=== PATIENT | male | born 1965 | race Caucasian/White ===

== ENCOUNTER 2025-07-26 16:52 | Inpatient (IN) | payer OTHER, SELFPAY ==
[2025-07-26] VITALS (9 sets, daily range): BP systolic 150–192; BP diastolic 97–118; BMI 25.5; BMI 25.7
--- NOTE | 2025-07-26 12:27 | ED.GENMED ---
History of Present Illness
General
Chief Complaint: Abdominal Symptoms
Time Seen by Provider: 07/26/25 12:12
History of Present Illness
History of Present Illness:
60-year-old male with no significant past medical history presents to the emergency department for evaluation of upper abdominal pain and bilious vomiting that began last night. No fevers or chills. Has had minimal stool and flatus output thus is
concern for bowel obstruction although his only prior abdominal surgery is bilateral inguinal hernia repair. Denies chest pain or shortness of breath. No hematochezia or hematemesis.
Review of Systems
Review of Systems
Allergies reviewed?: Yes
All Other Systems: ROS reviewed and negative except as documented in HPI and ROS
Phy Exam
Physical Exam
Physical Exam:
GEN: Well appearing, NAD, WDWN
HEENT: Oral mucosa moist, no scleral icterus
Cardiac: Regular rate and rhythm, no murmur
Lung: No respiratory distress, no tachypnea
Abdomen: Soft, focal epigastric tenderness, mild lower abdominal tenderness, no rigidity
MSK: No gross deformity or injuries
Skin: Good color, no pallor or jaundice, no rashes
Neuro: AO x3, moves all extremities freely
Psych: Calm, cooperative
Course
Orders/Labs/Results
Orders:
Orders
07/26/25 11:21
EKG [Electrocardiogram (*1)] Urgent
Reason for Study: Tachycardia
EKG- Treatment ONCE
07/26/25 12:27
CT Abd/Pel (IV only)-DH only Urgent
Comment:
Reason For Exam: abd pain/bloating/no flatus
0.9% Sodium Chloride 1000 ml [Nss] 1,000 ml IV BOLUS
07/26/25 12:43
Complete Blood Count/With Diff Urgent
Comprehensive Metabolic Panel Urgent
Lactic Acid Q4H
Comment: CANCEL 2nd LACTIC ACID IF 1st LACTIC ACID IS LESS THAN 2
Lipase Urgent
07/26/25 13:57
Ondansetron Injectable [Zofran] 4 mg .ROUTE .STK-MED ONE
07/26/25 13:58
Ondansetron Injectable [Zofran] 4 mg IV NOW STA
07/26/25 14:03
Acetaminophen 1000MG/100Ml [Ofirmev] 1,000 mg in 100 ml .ROUTE .STK-MED
07/26/25 14:05
Acetaminophen 1000MG/100Ml [Ofirmev] 1,000 mg IV NOW STA
07/26/25 Dinner
Clear Liquid
07/26/25 15:11
Lactated Ringers [Lr] 1,000 ml IV BOLUS
Piperacillin/Tazo 3.375 Gram [Zosyn] 3.375 gram in 50 ml IV NOW
07/26/25 15:13
HYDROmorphone [Dilaudid] 0.5 mg IV NOW STA
Abnormal Lab Results
07/26/25
12:43
WBC 13.9 H 10^3/uL
(4.8-10.8)
MCHC 32.6 L g/dL
(33.0-37.0)
RDW 14.6 H %
(11.5-14.5)
Absolute Neuts (auto) 12.5 H 10^3/uL
(1.4-6.5)
Absolute Lymphs (auto) 0.6 L 10^3/uL
(1.2-3.4)
Absolute Monos (auto) 0.8 H 10^3/uL
(0.1-0.6)
Neutrophils % 89.8 H %
(42.2-75.2)
Lymphocytes % 4.3 L %
(20.5-51.1)
Glucose 148 H mg/dl
(70-99)
07/26/25 12:43
07/26/25 12:43
Vital Signs
Initial and Last Documented VS:
Initial Vital Signs
Temp Pulse Resp BP Pulse Ox
98.8 F 123 16 192/118 99
07/26/25 11:17 07/26/25 11:17 07/26/25 11:17 07/26/25 11:17 07/26/25 11:17
Last Documented Vital Signs
Temp Pulse Resp BP Pulse Ox
98.8 F 123 16 176/102 96
07/26/25 11:17 07/26/25 11:17 07/26/25 11:17 07/26/25 14:02 07/26/25 15:00
MDM/Problems Addressed
MDM/Problems Addressed:
Workup reveals acute cholecystitis, reviewed with general surgery who will consult on the patient tomorrow, will be admitted for IV antibiotics and further management
*Pulse Oximetry
SaO2: 99
Oxygen Mode of Delivery: Room air
Patient hypoxic: no
*Critical Care Note
Total Time (30-74mins, 75-104mins- exclusive of procedures): Not Applicable
ED Attending Note
-
Portions of this chart may have been created with voice recognition software.� Occasional wrong word or��sound alike� substitutions may have occurred due to the inherent limitations of voice recognition software.
Discharge Plan
Departure
Patient Disposition: Admit
Date of Disposition: 07/26/25
Time of Disposition: 15:24
Admit to: Med/Surg
Presentation/result/management discussed w/ accepting MD/DO: Hospitalist
Discharge Problem:
Acute cholecystitis
Prescriptions:
No Action
No Current Medications
0
Referrals:
UNKNOWN - PT DOES,NOT KNOW [Family Provider]
Interventions
Interventions:
*Risk Screen - Suicide Last Done: 07/26/25 11:17
*General Assessment Last Done: 07/26/25 12:47
*Neglect/Abuse Screening Last Done: 07/26/25 11:17
*ED- Fall Risk Assessment Last Done: 07/26/25 12:47
*ED COVID-19 Vaccine History Last Done: 07/26/25 12:47
*ED Influenza Vaccine History Last Done: 07/26/25 12:47
CR-Pcskhh-[id number] Assessment Last Done: 07/26/25 12:48
Discharge Date and Time
Print Language: GABONESE
[2025-07-26] MEDS: NSS 1000 IV ×2 (12:44→20:10)
[2025-07-26 12:53] LABS: Hematocrit 47.2 % (39.0-52.0); Hemoglobin 15.4 g/dL (13.0-18.0); Mean Corp Hgb Conc. 32.6 g/dL (33.0-37.0); Mean Corpuscular Volume 83.7 fL (80.0-94.0); Nucleated Red Blood Cells % 0 % (-); Platelet Count 361 10^3/uL (130-400); Red Cell Dist. Width 14.6 % (11.5-14.5)
[2025-07-26 13:08] LABS: ALT (SGPT) 18 U/L (0-50); AST (SGOT) 21 U/L (17-59); Albumin 4.7 g/dl (3.5-5.0); Alkaline Phosphatase 78 U/L (38-126); Blood Urea Nitrogen 14 mg/dl (9-20); Calcium 9.3 mg/dl (8.4-10.2); Carbon Dioxide 30 mmol/L (22-30); Chloride 98 mmol/L (98-107); Estimated Creatinine Clearance 95 ml/min; Glucose 148 mg/dl (70-99); Lipase 87 U/L (23-300); Potassium 4.5 mmol/L (3.5-5.1); Sodium 135 mmol/L (135-145); Total Protein 8.1 g/dl (6.3-8.2); eGFR > 60.00
[2025-07-26] MEDS: ZOFRAN 4 MG IV ×2 (13:59→20:07)
[2025-07-26] MEDS: OFIRMEV 1000 MG IV (14:05)
[2025-07-26] MEDS: ZOSYN 50 IV ×2 (15:22→20:00)
[2025-07-26] MEDS: DILAUDID 0.5 MG IV ×3 (15:23→23:58)
--- NOTE | 2025-07-26 15:28 | HPS.HSE ---
Addendum entered and electronically signed by Cyndee Pang DO 07/26/25 17:48:
I have seen and examined the patient. I have discussed the patient at length with the resident and reviewed her history and physical, and agree with her history physical assessment and plan of care as per below.
The patient is a 60-year-old gentleman without significant past medical history presents to the emergency department secondary to diffuse midepigastric pain that radiates to the mid abdomen also associated with bilateral low back pain. He has been
chopping wood over the past week and says that he thought maybe the low back pain was related to that. He denies any fevers, no dysuria, no pain in the kidney area, no blood in the urine. Lipase is normal . CT findings c/w acute cholecystitis.
Additional findings are of a hypodense lesion on the left kidney, and urine analysis does not show an infection. Clinical correlation is not consistent with a pyelonephritis.
Vital signs BP 183/109 mmHg, HR 110
PE General No acute distress, conversant, well-developed well-nourished
Cardiovascular-regular rhythm, tachycardic, no murmurs
Lungs-clear to auscultation bilaterally no wheezes rales rhonchi
Abdomen-no peritoneal signs, no guarding, no rebound, diffuse epigastric tenderness noted
Extremities no clubbing cyanosis or edema-
I agree with the assessment and plan of care as per below, and with additional findings
#Gallstones, concern for acute cholecystitis, jake-cholecystic fluid on CT scan, leukocytosis
-Surgery has seen the patient, they are recommending n.p.o. past midnight and likely surgical intervention tomorrow
-IV Zosyn
# Hematuria, associated with the incidental findings including wedge-shaped hypodensity in the left kidney.
-The patient does not have clinical correlation to support acute pyelonephritis (has low back pain L5 region, possibly musculoskeletal vs visceral-somatic). No evidence for infection on urine analysis.
-Pt made aware of findings on CT and hematuria by myself, and discussed follow-up for these findings.
- Will get Urology consultation and MRI of the kidneys.
Original Note:
Family Physician
-
Family Physician: NOT KNOW UNKNOWN - PT DOES
Chief Complaint
-
Abdominal pain
History of Present Illness
60-year-old male with no significant past medical history presenting to the ER reporting upper abdominal pain, nausea/vomiting. Symptoms started yesterday evening around 4, patient vomited what ever he ate for lunch. Since then he has been having
bilious vomiting�5 episodes until now along with nausea. Patient reports his abdominal pain is diffuse in the epigastric and right upper quadrant regions. Does not vary with the position, food intake. Patient denies fever/chills, chest pain, SOB,
hematemesis, hematochezia. Reports minimal stool/flatus, he had a small bowel movement in the morning today. He also reports having lower back pain.
Patient did not take any medications for the pain, nausea/vomiting.
ED course� afebrile, blood pressure 192/118, pulse 123, MT 99. WBC 13.9, blood glucose 148, LFTs normal, T. bili normal, lactate 1.4, lipase 87
CT abdomen/pelvis�acute cholecystitis with pericholecystic fluid. Possible left pyelonephritis. EKG with sinus tachycardia.
Patient received IV fluids, ondansetron, acetaminophen, Dilaudid and he was given a dose of Zosyn.
Medical History
Past Medical History
Past Medical History: Reports None
Past Surgical History: Reports Other (Inguinal hernia repair)
Social History
Tobacco: Non-smoker
Alcohol: Occasional
Drug: None
Personal: Single
Living: Alone
Employment: Employed
Family History
Family History: Not pertinent
Allergies / Home Medications
Allergies reflects when Allergies were last updated in [facility].
Home Medications with original date entered in [facility]
Allergy/Medication List:
Allergies
Allergy/AdvReac Type Severity Reaction Status Date / Time
hydrocodone Allergy Itching Verified 07/26/25 11:17
oxycodone (Oxycodone) Allergy Itching Verified 07/26/25 11:17
environmental Allergy runny Uncoded 07/26/25 11:17
nose,
itchy eyes
Home Medications
No Meds [No Current Medications] 07/26/25
Review of Systems
-
A 12 point ROS was completed and negative except as noted: Yes
Physical Exam
Vital Signs
Vital Signs
Temp Pulse Resp BP Pulse Ox
98.8 F 123 16 176/102 96
07/26/25 11:17 07/26/25 11:17 07/26/25 11:17 07/26/25 14:02 07/26/25 15:00
Physical Exam
General: No Apparent Distress and Comfortable
HEENT: NormoCephalic and Atraumatic
Respiratory: Clear
Cardiac: S1/S2 and Regular Rhythm
GI: Soft, Non Tender, Non Distended, Normal Bowel Sounds and Other (Long sign negative)
Genito-urinary: Other (Patient has diffuse low back pain); No No costovertebral tender
Neuro: Awake, Alert, Oriented and AO x 3
Psych: Calm
Laboratory Results
-
07/26/25 12:43
07/26/25 12:43
Laboratory Results
Lactic Acid Cancelled 07/26/25 16:30
Total Bilirubin 0.7 mg/dl (0.2-1.3) 07/26/25 12:43
AST 21 U/L (17-59) 07/26/25 12:43
ALT 18 U/L (0-50) 07/26/25 12:43
Alkaline Phosphatase 78 U/L (38-126) 07/26/25 12:43
Lipase 87 U/L (23-300) 07/26/25 12:43
Impression/Plan
-
IMPRESSION:
60-year-old male with no significant past medical history presenting to the ER reporting upper abdominal pain, nausea/vomiting.
PLAN:
#Acute cholecystitis
Elevated white count 13.9, patient is afebrile
CT abdomen pelvis with evidence of acute cholecystitis, gallstone measuring 9 mm
Clears for now, n.p.o. past midnight
Start IV fluids
Patient received a dose of Zosyn, continue
Surgery consulted
Plan for cholecystectomy tomorrow
Adequate pain control
Antiemetics as needed, Zofran
Check EKG for QT
Continue Zosyn
#Elevated blood pressure
#Tachycardia
EKG with sinus tachycardia
Likely due to pain
Will monitor on telemetry
#Left pyelonephritis
Incidental finding on CT abdomen pelvis, radiology recommendation for nonemergent MRI
Patient does not have CVA angle tenderness, although complains of diffuse low back pain
No urinary symptoms
Will check urinalysis reflex to culture
DVT prophylaxis�SCDs
Diet�clear liquids, n.p.o. past midnight
Full code
[2025-07-26] MEDS: LR 1000 IV (16:00)
[2025-07-26 16:12] LABS: Urine Character Clear (Clear)
[2025-07-26 16:39] LABS: Urine Squamous Cell 0-2 /LPF (Few)
[2025-07-26 16:40] LABS: Urine White Cell 0-2 /HPF (0-5)
[2025-07-26] MEDS: APRESOLINE 5 MG IV (17:00)
[2025-07-26] MEDS: TRANDATE 10 MG IV (18:17)
--- NOTE | 2025-07-26 19:06 | PTCARENOTE ---
pt received to 2103 with cousin who is [employer] here, SS then walked to bed. TT with Hospitalist regarding Toradol prior to sx and verification. Bp 171/109 Labetalol ordered. MD will change to Dilaudid and IV APAP. NSS 80ml/hr. resting in bed ECG
tachycardic 130 T 100.7
[2025-07-26] MEDS: TUMS CHEWABLE TABLET 200 MG PO (21:04)
[2025-07-27] VITALS (23 sets, daily range): BP systolic 92–163; BP diastolic 61–104
[2025-07-27] MEDS: ZOSYN 50 IV ×4 (02:19→21:10)
[2025-07-27] MEDS: DILAUDID 0.5 MG IV ×2 (05:04→08:57)
[2025-07-27] MEDS: NSS 1000 IV ×2 (06:18→11:25)
[2025-07-27 07:05] LABS: Hematocrit 45.8 % (39.0-52.0); Hemoglobin 14.8 g/dL (13.0-18.0); Mean Corp Hgb Conc. 32.3 g/dL (33.0-37.0); Mean Corpuscular Volume 84.3 fL (80.0-94.0); Nucleated Red Blood Cells % 0 % (-); Platelet Count 364 10^3/uL (130-400); Red Cell Dist. Width 14.7 % (11.5-14.5)
[2025-07-27 07:21] LABS: ALT (SGPT) 16 U/L (0-50); AST (SGOT) 19 U/L (17-59); Albumin 4.1 g/dl (3.5-5.0); Alkaline Phosphatase 73 U/L (38-126); Blood Urea Nitrogen 13 mg/dl (9-20); Calcium 8.9 mg/dl (8.4-10.2); Carbon Dioxide 28 mmol/L (22-30); Chloride 97 mmol/L (98-107); Estimated Creatinine Clearance 95 ml/min; Glucose 128 mg/dl (70-99); Potassium 4.0 mmol/L (3.5-5.1); Sodium 133 mmol/L (135-145); Total Protein 7.4 g/dl (6.3-8.2); eGFR > 60.00
--- NOTE | 2025-07-27 09:51 | W.SUR.PREOP ---
Pre-Operative Surgical Note
-
I have examined this patient prior to the performance of the scheduled procedure.
The patient's condition is unchanged from the time of the current History and
Physical and the patient is able to undergo the scheduled procedure.
--- NOTE | 2025-07-27 09:52 | CON.GS ---
Addendum entered and electronically signed by Tha Fields MD 07/27/25 17:58:
Patient had anaphylactic reaction to MRI contrast. Properly sent to the ICU for further hemodynamic monitoring though he appears to be making fine recovery.
MRI did reconfirm acute cholecystitis. Patient added on for the OR schedule tomorrow.
Patient agreeable to plan of care, all questions answered.
General surgery will continue to follow.
Original Note:
Consultation
-
Date/Time Consultation Requested: 07/26/2025 6 PM
Date/Time Consultation Performed: 07/27/2025 8 a.m.
Requesting Provider: Hospitalist
Performing Provider: Dr. Fields
Reason for Consultation: Acute cholecystitis
Medical History
-
Chief Complaint: Right upper quadrant abdominal pain
History of Present Illness:
This is a 60-year-old male who presents with history of 2 days of epigastric abdominal pain with nausea and bilious vomiting. He does endorse slightly similar but lesser episodes in the past on recollection. He denies any fevers or chills at home
but has been febrile here. The patient denies Chest Pain, Shortness Of Breath, changes in urinary and bowel habits, unintentional weight loss, jaundice, icterus, acolic stools.
Past Medical History
Past Medical History: None
Past Surgical History: None
Social History
Tobacco: Non-Smoker
Alcohol: Occasional
Drug: None
Personal: Single
Living: Alone
Employment: Employed
Family History
Family History: Reviewed & Not Pertinent
Allergies / Home Medications
Allergy/AdvReac Type Severity Reaction Status Date / Time
hydrocodone Allergy Itching Verified 07/26/25 11:17
oxycodone (Oxycodone) Allergy Itching Verified 07/26/25 11:17
environmental Allergy runny Uncoded 07/26/25 11:17
nose,
itchy eyes
�Medication �Instructions �Recorded �Confirmed �Type
No Meds [No Current Medications] 11/09/25 11/09/25 History
Review of Systems
-
All other systems: Negative unless noted
A 10 point review of systems was completed, and was negative except as per HPI.
Physical Exam
Vital Signs
Temp Pulse Resp BP Pulse Ox
99.0 F 109 16 163/104 100
07/27/25 08:00 07/27/25 08:00 07/27/25 08:00 07/27/25 08:00 07/27/25 08:00
07/26/25 07/27/25 07/28/25
06:59 06:59 06:59
Actual Weight 76.521 kg
Body Mass Index (BMI) 25.7
Lab Results
07/27/25 06:28
07/27/25 06:28
WBC 16.1 10^3/uL (4.8-10.8) H 07/27/25 06:28
Hgb 14.8 g/dL (13.0-18.0) 07/27/25 06:28
Hct 45.8 % (39.0-52.0) 07/27/25 06:28
Plt Count 364 10^3/uL (130-400) 07/27/25 06:28
Abs Immat Gran (auto) 0.1 10^3/uL (0-0.05) H 07/27/25 06:28
Neutrophils % 83.7 % (42.2-75.2) H 07/27/25 06:28
Physical Exam
General: Well Developed
HEENT: Normocephalic
Respiratory: Non Labored Respirations
GI: Soft, Non Tender and Non Distended
Data Reviewed
-
CT Scan: Image Personally Visualized and interpreted, Report Reviewed by me, Discussed with Patient and Discussed with Family
Labs: Labs Reviewed by me, Discussed with Patient and Discussed with Family
Total Time Spent with Patient (in minutes): 35
Assessment / Plan
-
This is a 60-year-old male who presents with right upper quadrant/epigastric abdominal pain. CT imaging concerning for cholelithiasis as well as a thickened gallbladder wall. On exam he is not significantly tender but is febrile and tachycardic
with a +leukocytosis. LFTs and lipase okay.
Despite his lack of tenderness, I do have a high suspicion for acute cholecystitis.
Will plan for laparoscopic cholecystectomy with cholangiogram.
Risks/Benefits/Alternatives, expected postoperative course and possible complications (bleeding, infection, injury to surrounding structures, acute/chronic pain) discussed at length. Patient wishes to proceed with surgery. All questions answered.
Consent obtained.
I spent 76 minutes in total for the care of this patient today including direct patient care and counseling, reviewing labs, imaging, coordination of care, as well as documentation.
--- NOTE | 2025-07-27 10:35 | CM ---
CM following re: discharge planning.
Reviewed pt's chart, met with pt and pt's girlfriend at bedside.
Pt is a 60 year old male, admitted with primary dx of Acute Cholecystitis. OR today.
Pt reports he lives alone in a 2[address], has a cat, girlfriend in and out, no children. 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
PCP: [facility]
Pharmacy: [facility].
D/C plan: home with no needs. girlfriend to transport at discharge.
CM will follow with discharge plan updates as needed.
[2025-07-27] MEDS: DECADRON 10 MG IV (11:36)
[2025-07-27] MEDS: ADRENALIN 0.3 MG IM (11:36)
[2025-07-27 11:42] LABS: Glucose - Point of Care 150 mg/dl (70-99)
--- NOTE | 2025-07-27 11:46 | W.PN.UPDATE ---
Update Note
Progress Note Update
Rapid response was called for patient being noted to having likely an anaphylactic episode.
During MRI postcontrast patient was noted to having acute onset of dyspnea/tachycardia/hypotension and diaphoresis
Patient systolic blood pressure was in range of 70s.
Patient was given IV fluid boluses. Patient was given Benadryl/IM epinephrine and IV steroid
Patient transferred to ICU for closer monitoring for next 24 hours
Patient was examined in ICU
Patient vitally stable with systolic blood pressure in 110s, tachycardic with heart rate in 120s
No stridor audible on neck exam. No tongue swelling noted
Clear bilateral lung matthwe with bilateral air entry
Care plan discussed with Clubhouse Attendant
Patient family at bedside updated
--- NOTE | 2025-07-27 12:18 | PTCARENOTE ---
Patient sent down to MRI to follow up possible pyelonephritis seen on cat scan.I received call from cat scan saying that he had a reaction to the dye and would need Benadryl.Shortly after that I was told that he was transferred to ICU.The patient's
was told and escorted over to her husbands room .All of his belongings were also taken to the new room.
--- NOTE | 2025-07-27 12:31 | CON.INTV ---
Consultation
Consultation Request
Date/Time Consultation Requested: 07/27/2025 12:32
Date/Time Consultation Performed: 07/27/2025 12:32
Performing Provider: Zaid Uriarte MD
Medical History
-
History of Present Illness:
This is a 60 y/o male with no significant past medical history who presented to the ED on 07/26/2025 with upper abdominal pain radiating to the mid abdomen, nausea and bilious vomiting that began the day prior. He had 5 episodes of vomiting total.
In the ED BP was 183/109, HR 110. Labs revealed a CMP within normal limits except for glucose of 148, CBC with a WBC of 13.9, UA positive for RBCs and 2+ Ketones. CT scan abdomen/pelvis showed gallstone with pericholecystic fluid concerning for
acute cholecystitis, possible left pyelonephritis, moderate diverticulosis, mild diffuse bladder wall thickening. [facility] was consulted with plan for surgical intervention, he was started on Zosyn, and he was admitted to the hospital.
On 07/27, he had an MRI of the abdomen to follow up on his possible left pyelonephritis. This showed cholelithiasis and gallbladder wall thickening raising concern for acute cholecystis, no MRCP evidence for choledocholithiasis, and resolution of
kidney findings. By patient's report, shortly after finishing the MRI he began to experience numbness and tingling in his face with redness of his skin. His blood pressure abruptly decreased, so he was transferred to the ICU and given 0.3mg
epinephrine for presumed anaphylactic reaction to the Gadolinium-containing contrast. He does not that he was worried he may have developed a new allergy to shellfish recently, as ~2 weeks ago after eating a shellfish potpie his noted his face
had become bright red and puffy. These symptoms were self-limiting at that time, however. He has no other anaphylactic reactions he is aware of. He currently is free of numbness/tingling of his face, shortness of breath. He continues to experience
upper/right sided abdominal pain with nausea, but it is significantly improved since yesterday and the day prior. His back pain has completely resolved.
Past Medical History
Past Medical History: None
Past Surgical History: None
Social History
Tobacco: Non-smoker
Alcohol: Occasional
Drug: None
Personal: Single
Living: Alone
Employment: Employed
Family History
Family History: Reviewed & Not Pertinent
Allergies / Home Medications
Allergies
Allergy/AdvReac Type Severity Reaction Status Date / Time
Gadolinium-Containing Allergy Severe Anaphylaxis Verified 07/27/25 12:12
Contrast Medi
hydrocodone Allergy Itching Verified 07/26/25 11:17
oxycodone (Oxycodone) Allergy Itching Verified 07/26/25 11:17
environmental Allergy runny Uncoded 07/26/25 11:17
nose,
itchy eyes
Home Medications
�Medication �Instructions �Recorded �Confirmed �Last Taken �Type
No Meds [No Current Medications] 07/26/25 07/26/25 Unknown History
Review of Systems
-
History Source: Patient
Constitutional: No Symptoms
EENT: No Symptoms
Respiratory: No Symptoms
Cardiac: No Symptoms
Abdomen/GI: Abdominal Pain and Nausea
Skin: Itching (Now resolved) and Rash (Now resolved)
Neuro: Numbness (Now resolved)
Vitals / Labs / Diagnostic Testing
Vital Signs
Temp Pulse Resp BP Pulse Ox
97.8 F 109 16 163/104 100
07/27/25 11:40 07/27/25 08:00 07/27/25 08:00 07/27/25 08:00 07/27/25 11:40
Lab Data
07/27/25 06:28
07/27/25 06:28
Diagnostic Testing:
Physical Exam
-
HEENT: Normocephalic and Anicteric
Cardiovascular: S1/S2, Regular Rhythm and Other (Tachycardia)
Respiratory: Clear, Non-Labored Respirations and Other (Supplemental Oxygen)
GI: Soft, Non Distended, Non Tender and Normal Bowel Sounds
Neurology: Awake, Alert and Oriented
Skin: Warm, Dry and Good Color
General: Comfortable
Assessment
-
Assessment:
This is a 60 y/o male with no significant past medical history who presented to the ED on 07/26/2025 with upper abdominal pain radiating to the mid abdomen, nausea and bilious vomiting that began the day prior found to have acute cholecystis who
experienced an anaphylactic reaction after MRI today.
Plan:
Anaphylactic Reaction
Gadolinium-Contrast Allergy
Patient with numbness/tingling of the face and rash with acute episode of hypotension after Gadolinium-containing contrast administered
Possible historic allergy to shellfish in recent history
S/p 0.3mg epinephrine
Doing well, currently not on pressors, BP has since recovered. Goal to maintain MAP >65
No signs of current ongoing reaction
Continue to monitor in the ICU on telemetry
Would recommend epi pen prescription following eventual discharge from the hospital
Counselled patient on use of epi pen and that if he experiences symptoms of an allergic reaction, he should call 911 even if his symptoms resolve after epi pen use due to concern for rebound allergic reaction. Additionally counselled him on delayed
allergic reactions
Will monitor
Acute Cholecystitis
WBC elevated in the ED
CT scan abdomen/pelvis 07/26: Gallstone with pericholecystic fluid concerning for acute cholecystitis, possible left pyelonephritis, moderate diverticulosis, mild diffuse bladder wall thickening
MRI 07/27: Cholelithiasis and gallbladder wall thickening raising concern for acute cholecystis, no MRCP evidence for choledocholithiasis
General surgery is following, will appreciate their insight
Initial plan seemed to be for possible surgery today, but this seems to have been delayed due to anaphylactic reaction. Defer to general surgery for timeline for surgical interventions
Current diet set to full liquids, will plan to make him NPO at midnight
Continue PRN pain medications, antiemetics, Zosyn
Continue IV fluids
[2025-07-27] MEDS: DILAUDID 0.25 MG IV (12:54)
[2025-07-27] MEDS: ZOFRAN 4 MG IV (12:55)
--- NOTE | 2025-07-27 13:09 | PTCARENOTE ---
Received pt post [employer]ELOP[employer] for anaphylaxis reaction to contrast for his MRI. His face continues to be flushed with scattered blotchy flat reddened rash on his neck and torso. Diaphoresis resolving. He was given Decadron and Epinephrine upon arrival as
ordered by who is at the bedside. No wheezing or difficulty swallowing. +BSX4. Currently NPO. He is c/o neck pain/stiffness and tingling of his wrists and L/E's. He was informed of the plan of care to monitor him closely for the next 24
hours for any other S/S of anaphylaxis. He verbalized his understanding. Left FA#20g protective catheter with 0.9nss@ 100ml/hr. He was also informed that he absolutely allergic to IV contrast and shell fish and to make sure in the future he informs
his health care providers of that. He was also informed to make sure that he is discharged with an Epi pen should he have a reaction to shellfish or cross contamination in the future. He and his girlfriend verbalized their understanding.
--- NOTE | 2025-07-27 14:53 | W.PN.HOSP.TC ---
Today's Communication/Plan
-
see note
Assessment / Plan
Assessment / Plan
1. Acute cholecystitis
- patient presented for abd pain and billious vomiting
- CT abdomen pelvis in ER showing cholelithiasis with pericholecystic fluid concerning for acute cholecystitis
- Patient started on empiric Zosyn
- General Surgery involved in care and patient was planned to taken to the OR today , this has been postponed for tomorrow
2. Anaphylactic reaction
- Patient got anaphylactic reaction presumably from MRI contrast, medication list reviewed and no new medications given around that time
- Patient was hypotensive as part of the reaction, now improved
- Required to be given epinephrine 0.3 mg IM and IV Decadron 10 mg.
- No signs concerning of airway blockage, monitor.
- Maintain on IVF
3. Acute hyponatremia
- Mild, monitor
4. Sinus tachycardia
- post anaphylaxis, asymptomatic
- continue monitoring
Full code
Care plan discussed with service developer/family member at bedside
Total critical care time 39 mins . Total critical care time documented does not include time spent on separately billed procedures or the services of residents, students, nurses or physician assistants. I personally saw and examined the patient. I
have reviewed all diagnostic interpretations and treatment plans as written. I was present for the coates portions of any procedures performed and the inclusive time noted in any critical care statement. Critical care time includes patient management
by me, time spent at the patients bedside, time to review lab and imaging results, discussing patient care, documentation in the medical record, and time spent with the family or caregiver.
Anticipated Discharge: 24 - 48 hours
Subjective/Interval History
-
Date of Service: July 27, 2025
Denies dyspnea/chest discomfort
Tachycardic, no palpitation reported
No abdominal pain/nausea/vomiting
Objective Data
-
Labs:
Laboratory Results
07/27/25
06:28
WBC 16.1 H
Hgb 14.8
Hct 45.8
Plt Count 364
Sodium 133 L
Potassium 4.0
Chloride 97 L
Carbon Dioxide 28
BUN 13
Creatinine 0.8
Glucose 128 H
Calcium 8.9
Total Bilirubin 0.9
AST 19
ALT 16
Alkaline Phosphatase 73
Vital Signs:
Vital Signs
Temp Pulse Resp BP Pulse Ox
97.8 F 125 14 109/81 99
07/27/25 11:40 07/27/25 12:30 07/27/25 12:30 07/27/25 12:30 07/27/25 12:30
I&O
07/26/25 07/27/25 07/28/25
06:59 06:59 06:59
Intake Total 700 / 700
Balance 700 / 700
Review of Systems
-
Respiratory: Reports No Symptoms
Cardiac: Reports No Symptoms
Abdomen/GI: Reports No Symptoms
Physical Exam
-
General: Comfortable
HEENT: Oxygen
Respiratory: Clear to Auscultation
Cardiac: Regular Rhythm, S1/S2 and Tachycardic; Negative Murmur or Rub
Musculoskeletal: No Edema
Neuro: Awake, Alert, Oriented, No Motor Deficits and Nonfocal/Grossly Intact
Psych: Calm
--- NOTE | 2025-07-27 16:39 | PTCARENOTE ---
Pt tolerating full liquids. No problems swallowing or talking. He feels at his baseline.
[2025-07-27 16:55] LABS: APTT 29.0 Sec (23.4-35.0); INR 1.28; PT 16.3 Sec (11.4-14.6)
[2025-07-27 17:19] LABS: Magnesium 1.8 mg/dl (1.6-2.3)
[2025-07-27] MEDS: LOVENOX 40 MG SC (17:20)
--- NOTE | 2025-07-27 20:30 | PTCARENOTE ---
Patient alert and oriented, pleasant and cooperative. Ambulated to bathroom with minimal assist. No c/o pain. Face remains flushed. Afebrile. ST on monitor. BP stable. Pulses palpable, no edema. IV lines flushed/patent. Room air, lungs clear to
auscultation. 99%. Tolerating full liquids minimal complaint of reflux, offered tums. Voids in bathroom. Will monitor.
[2025-07-28] VITALS (33 sets, daily range): BP systolic 115–162; BP diastolic 74–108; BMI 25.1
[2025-07-28] MEDS: NSS 1000 IV ×3 (03:27→23:34)
[2025-07-28] MEDS: ZOSYN 50 IV ×3 (03:27→20:06)
[2025-07-28] MEDS: ZOFRAN 4 MG IV ×2 (03:37→17:15)
[2025-07-28] MEDS: DILAUDID 0.25 MG IV ×4 (03:37→23:41)
[2025-07-28 03:47] LABS: Hematocrit 42.1 % (39.0-52.0); Hemoglobin 14.1 g/dL (13.0-18.0); Mean Corp Hgb Conc. 33.5 g/dL (33.0-37.0); Mean Corpuscular Volume 82.1 fL (80.0-94.0); Platelet Count 348 10^3/uL (130-400); Red Cell Dist. Width 14.7 % (11.5-14.5)
[2025-07-28] MEDS: MUCINEX 1200 MG PO ×3 (03:57→20:06)
[2025-07-28 04:52] LABS: Blood Urea Nitrogen 15 mg/dl (9-20); Calcium 8.6 mg/dl (8.4-10.2); Carbon Dioxide 27 mmol/L (22-30); Chloride 105 mmol/L (98-107); Estimated Creatinine Clearance 76 ml/min; Glucose 102 mg/dl (70-99); Magnesium 2.0 mg/dl (1.6-2.3); Potassium 3.9 mmol/L (3.5-5.1); Sodium 135 mmol/L (135-145); eGFR > 60.00
[2025-07-28 04:54] LABS: COVID-19 Antigen Negative (Negative)
--- NOTE | 2025-07-28 04:59 | PTCARENOTE ---
Patient with persistent cough overnight. Guaifenesin ordered as requested. Covid swab sent (negative). AM labs sent and pending. NPO this am for OR later today.
--- NOTE | 2025-07-28 07:35 | PTCARENOTE ---
Received pt sitting up in the bed. He is awake and alert. Left FA#18g protective catheter with nss@100ml/hr. Right upper FA#20f protective catheter flushed and patent. Moist non-productive cough. No wheezing. Lungs CTA posteriorly. RA pulse
ox94-97%. +BSX4. NPO for surgery later today. No BM since before admission. +Flatus, no nausea, no abdominal pain or tenderness. Ambulatory in the room. Knee-hi SCD's. He was instructed on the management of post-op pain, constipation, proper use of
the incentive spirometer, and the prevention of DVT by wearing the SCD's and ambulating. He demonstrated his understanding and use of the incentive spirometer. Safe environment maintained.
--- NOTE | 2025-07-28 08:37 | W.PN.INTV ---
Today's Communication / Plan
Recommendations
No recurrence of anaphylaxis
Will sign off
Assessment
-
Assessment:
This is a 60 y/o male with no significant past medical history who presented to the ED on 07/26/2025 with upper abdominal pain radiating to the mid abdomen, nausea and bilious vomiting that began the day prior found to have acute cholecystis who
experienced an anaphylactic reaction after MRI on 07/27.
Plan:
Anaphylactic Reaction - Resolved
Gadolinium-Contrast Allergy
Patient with numbness/tingling of the face and rash with acute episode of hypotension after Gadolinium-containing contrast administered on 07/27, no recurrence
Possible historic allergy to shellfish, but unconfirmed
S/p 0.3mg epinephrine
Doing well, currently not on pressors, BP remained steady. Goal to maintain MAP >65
Has remained asymptomatic since initial episode
Would recommend epi pen prescription following eventual discharge from the hospital
Counselled patient on use of epi pen and that if he experiences symptoms of an allergic reaction, he should call 911 even if his symptoms resolve after epi pen use due to concern for rebound allergic reaction. Additionally counselled him on delayed
allergic reactions
At this point he has remained free of symptoms since initial episodes, he no longer required ICU-level care.
Acute Cholecystitis
WBC elevated in the ED
CT scan abdomen/pelvis 07/26: Gallstone with pericholecystic fluid concerning for acute cholecystitis, possible left pyelonephritis, moderate diverticulosis, mild diffuse bladder wall thickening
MRI 07/27: Cholelithiasis and gallbladder wall thickening raising concern for acute cholecystis, no MRCP evidence for choledocholithiasis
General surgery is following, will appreciate their insight
Plan for surgical intervention today
Continue PRN pain medications, antiemetics, Zosyn
Continue IV fluids
Subjective Dataa
Subjective Data
Date of Service:
Date of Service: July 28, 2025
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
Subjective:
Patient was resting comfortably in his chair when I arrived. He has remained free of shortness of breath, rash, numbness/tingling since his event yesterday. Continues to have some mild abdominal pain which is improved with medications. Overall feels
better than yesterday.
Review of Systems
General: Fever (Denies) and Chills (Denies)
Cardiopulmonary: Dyspnea (Denies)
GI: Abdominal Pain
Objective Data
Data Reviewed
Vital Signs / I&O / Oxygen:
Vital Signs
Temp Pulse Resp BP Pulse Ox
98.5 F 102 13 146/98 97
07/28/25 07:35 07/28/25 08:15 07/28/25 08:15 07/28/25 08:13 07/28/25 08:30
Intake and Output
07/27/25 07/28/25 07/29/25
06:59 06:59 06:59
Intake Total 2550 / 2650 200 / 200
Balance 2550 / 2650 200 / 200
SaO2 97
Nasal Cannula flow liters per 2
minute
Physical Exam
General: Comfortable
HEENT: Normocephalic and Anicteric
Cardiovascular: S1-S2, Regular Rhythm and Other (Tachycardia)
Respiratory: Clear
Neurology: Awake, Alert and Oriented
Skin: Warm, Dry and Good Color
Labs/Micro/Reports
Lab Data
07/28/25 03:26
07/28/25 04:05
Laboratory Results
07/27/25
16:37
PT 16.3 H
INR 1.28
APTT 29.0
--- NOTE | 2025-07-28 09:19 | PTCARENOTE ---
Pt is aware that he will be transferred to M/S post op.
[2025-07-28] MEDS: SENOKOT-S 1 TABLET PO (09:23)
--- NOTE | 2025-07-28 10:28 | W.PN.GS2 ---
Today's Communication / Plan
-
-- Laparoscopic cholecystectomy with IOC
-- NPO, IVF
-- Abx: Zosyn
Assessment / Plan
-
Patient is a 60 yo M p/w acute on chronic cholecystitis
AVSS
Labs notable for downtrending WBC
Issues with anaphylactic reaction to gadolinium for MRI imaging yesterday. Recovered well and currently clinically stable.
The natural history and pathophysiology of biliary and stone disease was discussed. Anatomy was reviewed. Workup thus far including CT scan and MRI were reviewed. Previous discussions and plan for a cholecystectomy during this admission.
Plan for a laparoscopic cholecystectomy with possible cholangiogram. The procedure itself, as well as the risks, benefits, and alternatives was discussed. Specifically, we discussed the risks of bleeding, infection, injury to surrounding
structures (bowel, bile ducts), CBD injury, need for open procedure. Typical postprocedure recovery was discussed. Specifically, we discussed pain management, activity restrictions, and a 10-25 risks of fluctuations in GI function. All questions
answered. Consent signed.
-- Laparoscopic cholecystectomy with IOC
-- NPO, IVF
-- Abx: Zosyn
Subjective Data
-
Date of Service: July 28, 2025
Pain improved. No nausea or vomiting. No fevers.
Objective Data
-
Intake and Output
07/27/25 07/28/25 07/29/25
06:59 06:59 06:59
Intake Total 2550 / 2650 300 / 300
Balance 2550 / 2650 300 / 300
Intake:
IV fluids (Total) 2400 / 2500 300 / 300
Nss 1,000 ml @ 100 mls/hr IV . 1900 / 2000 300 / 300
Q10H DANIELLE Rx#:[id number]
nss 500 / 500
IV piggybacks 150 / 150
Other:
Number of approximated MODERATE 1 1
amounts of urine
Vital Signs
Temp Pulse Resp BP Pulse Ox
98.5 F 104 12 127/87 97
07/28/25 07:35 07/28/25 09:00 07/28/25 09:00 07/28/25 09:00 07/28/25 08:30
Lab Results
07/28/25 03:26
07/28/25 04:05
Calcium 8.6 mg/dl (8.4-10.2) 07/28/25 04:05
Phosphorus 2.9 mg/dl (2.5-4.5) 07/28/25 04:05
Magnesium 2.0 mg/dl (1.6-2.3) 07/28/25 04:05
Total Bilirubin 0.9 mg/dl (0.2-1.3) 07/27/25 06:28
AST 19 U/L (17-59) 07/27/25 06:28
ALT 16 U/L (0-50) 07/27/25 06:28
Alkaline Phosphatase 73 U/L (38-126) 07/27/25 06:28
Total Protein 7.4 g/dl (6.3-8.2) 07/27/25 06:28
Albumin 4.1 g/dl (3.5-5.0) 07/27/25 06:28
Physical Exam
-
Gen: NAD
Abd: soft, NT, ND, non-peritoneal, prior incisions well healed
Patient has a gonzales catheter: No
Patient has a central line: No
--- NOTE | 2025-07-28 11:56 | PTCARENOTE ---
No changes in assessment. He is using the IS independently to 2500ml's. Supportive care provided. His girlfriend is at the bedside. Safe environment maintained.
--- NOTE | 2025-07-28 13:40 | W.PN.HOSP.TC ---
Today's Communication/Plan
-
transfer to med/surg floor
Assessment / Plan
Assessment / Plan
1. Acute cholecystitis
- patient presented for abd pain and billious vomiting
- CT abdomen pelvis in ER showing cholelithiasis with pericholecystic fluid concerning for acute cholecystitis
- Patient started on empiric Zosyn
- Patient is planned to go to the OR today
2. Anaphylactic reaction
- Patient got anaphylactic reaction presumably from MRI contrast, medication list reviewed and no new medications given around that time.
- Patient was hypotensive as part of the reaction, now improved
- Required to be given epinephrine 0.3 mg IM and IV Decadron 10 mg.
- No signs concerning of airway blockage, monitor.
3. Acute hyponatremia
- Mild, monitor
4. Sinus tachycardia - improved
- post anaphylaxis, asymptomatic
Full code
Care plan discussed with general surgery
Patient to transfer to MedSur floor
Anticipated Discharge: Within 24 hours
Subjective/Interval History
-
Date of Service: July 28, 2025
Off of oxygen
Have some increased phlegm
No significant cough
No abdominal pain nausea vomiting
Objective Data
-
Labs:
Laboratory Results
07/28/25 07/28/25
03:26 04:05
WBC 12.5 H
Hgb 14.1
Hct 42.1
Plt Count 348
Sodium Cancelled 135
Potassium Cancelled 3.9
Chloride Cancelled 105
Carbon Dioxide Cancelled 27
BUN Cancelled 15
Creatinine Cancelled 1.0
Glucose Cancelled 102 H
Calcium Cancelled 8.6
Vital Signs:
Vital Signs
Temp Pulse Resp BP Pulse Ox
98.5 F 98 18 142/79 92
07/28/25 11:27 07/28/25 12:00 07/28/25 12:00 07/28/25 12:00 07/28/25 12:00
I&O
07/27/25 07/28/25 07/29/25
06:59 06:59 06:59
Intake Total 2550 / 2650 600 / 600
Balance 2550 / 2650 600 / 600
Review of Systems
-
Respiratory: Reports No Symptoms
Cardiac: Reports No Symptoms
Abdomen/GI: Reports No Symptoms
Physical Exam
-
General: No Apparent Distress and Comfortable
HEENT: Negative Oxygen
Respiratory: Clear to Auscultation
Cardiac: Regular Rhythm and S1/S2; Negative Murmur or Rub
GI: Soft, Nontender, Nondistended and Normal Bowel Sounds
Musculoskeletal: No Edema
Neuro: Awake, Alert, Oriented, No Motor Deficits and Nonfocal/Grossly Intact
Psych: Calm
--- NOTE | 2025-07-28 13:58 | PTCARENOTE ---
pt performed CHG bath independently. Brushed his teeth and gown changed. Bed changed out to a 2 south bed and weighed. SCD's placed jasvir on him. Gum Remover visited with him. Safe environment maintained. His girlfriend remains at the bedside.
[2025-07-28] MEDS: ZOSYN IV (15:27)
--- NOTE | 2025-07-28 15:43 | CM ---
POD#1 lap twin. IV/Zosyn. Discharge POC: Anticipate home with no needs.
--- NOTE | 2025-07-28 16:42 | W.IMMPOSTOP ---
Surgical Immed Post Op Note
-
Primary Surgeon: Stacy
Assisting Surgeon: ELLIE Nguyen
Pre-op Diagnosis: Acute cholecystitis
Post-op Diagnosis: Acute cholecystitis
Procedure Performed: Laparoscopic cholecystectomy with IOC, open primary umbilical hernia repair
Anesthesia Type: General
Specimen / Cultures:
1. Gallbladder
Estimated Blood Loss: 23 cc
Complications: None
Operative Findings:
1. Mildly distended GB, thickened wall, fatty friable liver
2. Critical view, IOC negative
3. Duct and artery taken with clips, duct secured with 0 PDS Endoloop
4. Umbilical hernia < 1 cm, primary repair with 0 PDS [id number] x2
[2025-07-28] MEDS: TRANDATE 10 MG IV (17:32)
[2025-07-28] MEDS: COMPAZINE 5 MG IV (18:10)
--- NOTE | 2025-07-28 19:20 | PTCARENOTE ---
Received patient from PACU via bed around 1835 in stable condition. Patient ambulated to the bathroom with assist x 1. 4 lap sites and 1 umbilical incision with gauze cdi. at bedside. Call shah in reach.
[2025-07-28] MEDS: TYLENOL 650 MG PO ×2 (20:06→23:45)
[2025-07-29] MEDS: ZOSYN 50 IV ×2 (02:18→09:14)
[2025-07-29 03:12] VITALS: BP 118/78
[2025-07-29] MEDS: TYLENOL PO (04:16)
[2025-07-29 08:05] VITALS: BP 154/97
[2025-07-29] MEDS: ULTRAM 50 MG PO (08:12)
[2025-07-29] MEDS: TYLENOL 650 MG PO (08:12)
[2025-07-29] MEDS: MUCINEX 1200 MG PO (08:12)
[2025-07-29 08:36] LABS: Hematocrit 41.9 % (39.0-52.0); Hemoglobin 13.1 g/dL (13.0-18.0); Mean Corp Hgb Conc. 31.3 g/dL (33.0-37.0); Mean Corpuscular Volume 86.4 fL (80.0-94.0); Platelet Count 296 10^3/uL (130-400); Red Cell Dist. Width 14.8 % (11.5-14.5)
--- NOTE | 2025-07-29 08:37 | W.PN.GS2 ---
Today's Communication / Plan
-
-- Low fat diet
-- Pain control: Tylenol, Toradol, Tramadol
-- DC IVF when tolerating diet
-- DC instructions updated
-- F/u in 2-4 weeks
Assessment / Plan
-
Patient is a 60 yo M p/w acute on chronic cholecystitis
POD#1 s/p laparoscopic cholecystectomy with IOC
AVSS
Labs notable stable reactive leukocytosis, stable Hb, BMP pending
Recovering well. No post-operative concerns.
-- Low fat diet
-- Pain control: Tylenol, Toradol, Tramadol
-- DC IVF when tolerating diet
-- DVT: Lovenox
-- OOB/ambulate
-- DC instructions updated
-- F/u in 2-4 weeks
Subjective Data
-
Date of Service: July 29, 2025
Reports some soreness this morning, no pain medication use. No nausea or vomiting. No fevers. Voiding. Minimal ambulation postop.
Objective Data
-
Intake and Output
07/28/25 07/29/25 07/30/25
06:59 06:59 06:59
Intake Total 2550 / 2650 2648 / 2648
Output Total 250 / 250
Balance 2550 / 2650 2398 / 2398
Intake:
Oral fluids 248 / 248
IV fluids (Total) 2400 / 2500 2300 / 2300
Normosal 300 / 300
Nss 1,000 ml @ 100 mls/hr IV . 1900 / 2000 800 / 800
Q10H DANIELLE Rx#:[id number]
nss 500 / 500
IV piggybacks 150 / 150 100 / 100
Output:
Urine, Voided 250 / 250
Other:
Number of approximated MODERATE 1 1
amounts of urine
Vital Signs
Temp Pulse Resp BP Pulse Ox
98.2 F 98 16 154/97 97
07/29/25 08:05 07/29/25 08:05 07/29/25 08:05 07/29/25 08:05 07/29/25 08:05
Lab Results
07/29/25 07:36
Calcium 8.6 mg/dl (8.4-10.2) 07/28/25 04:05
Phosphorus 2.9 mg/dl (2.5-4.5) 07/28/25 04:05
Magnesium 2.0 mg/dl (1.6-2.3) 07/28/25 04:05
Total Bilirubin 0.9 mg/dl (0.2-1.3) 07/27/25 06:28
AST 19 U/L (17-59) 07/27/25 06:28
ALT 16 U/L (0-50) 07/27/25 06:28
Alkaline Phosphatase 73 U/L (38-126) 07/27/25 06:28
Total Protein 7.4 g/dl (6.3-8.2) 07/27/25 06:28
Albumin 4.1 g/dl (3.5-5.0) 07/27/25 06:28
Physical Exam
-
Gen: NAD
Abd: soft, NT/ND, non-peritoneal, incisions c/d/i - no erythema, ecchymosis or drainage
Patient has a gonzales catheter: No
Patient has a central line: No
[2025-07-29 08:59] LABS: Blood Urea Nitrogen 13 mg/dl (9-20); Calcium 8.2 mg/dl (8.4-10.2); Carbon Dioxide 28 mmol/L (22-30); Chloride 104 mmol/L (98-107); Estimated Creatinine Clearance 95 ml/min; Glucose 86 mg/dl (70-99); Potassium 3.8 mmol/L (3.5-5.1); Sodium 137 mmol/L (135-145); eGFR > 60.00
[2025-07-29 11:08] VITALS: BP 146/88
--- NOTE | 2025-07-29 12:16 | CM ---
Patient has been medically cleared for discharge to home with no additional skilled services. Patient has arranged for transport home.
--- NOTE | 2025-07-29 16:07 | W.DCSUMMARY ---
Discharge Summary
Discharge Data
Date of Admission: 07/26/25
Date of Discharge: 07/29/25
-
Pending Results: No
Hospital Course
Discharging Physician : Dr Obed Torrez
Disposition : Home
Primary care physician : Unknown
Principal Discharge diagnosis :
Acute cholecystitis
Anaphylactic reaction to MRI contrast
Hyponatremia
Chronic Discharge diagnosis :
none
Physical examination:
GEN: aox3
HEENT: moist mucus membrane
Chest: Clear to auscultation
Heart: N s1/s2, no murmur
Abd: N BS, soft, nontender, nondistended, no organomegaly
Neuro: No motor or sensory deficits
Ext: No edema
Hospital Course :
Patient is a 60-year-old male with above-mentioned past medical history came to ER with new onset of epigastric pain with radiation to back. Patient denied any associated nausea vomiting fever episode. A CT abdomen pelvis done in ER was showing
patient having possibly changes of acute cholecystitis. There was questionable left-sided pyelonephritis as well. Patient was started on broad-spectrum antibiotic and general surgery was involved in care. Patient was planned to taken to the OR
for elective cholecystectomy based on clinical finding and examination by surgery. Patient had an MRI abdomen pelvis as part of pyelonephritis workup and developed anaphylactic reaction during the MRI likely to gadolinium dye. Rapid response was
called and patient required to be given epinephrine and IV steroid. Patient was monitored in ICU after rapid response. No further complication occurred afterwards. Patient was taken to the OR next day and had an uneventful lap cholecystectomy.
Postsurgically patient was monitored overnight and discharged home following day with follow-up with surgery in office. Patient has been recommended to follow-up/establish care with change control specialist for further evaluation
Important imaging findings :
None
Procedure findings :
None
Discharge Plan
-
Patient Disposition: Home (Routine Discharge)
Discharge Diagnosis/Procedures: Acute cholecystitis s/p laparoscopic cholecystectomy and open primary umbilical hernia repair
Condition: Good
Diet: Regular and Low Fat
Additional Diets: If issues with bloating or diarrhea following low-fat diet
Activity: No strenuous activity
Additional Activity: No heavy lifting (>20 lbs) or strenuous activities for 4 weeks postoperatively
Driving Restrictions: No driving if to store or taking narcotics
Bathing Restrictions: OK to Shower
Wound Care: Keep incisions clean and dry. Glue will flake off in 2 to 3 weeks. Steri-Strips will flake off in 2 to 3 weeks. Stitches will dissolve. Okay to remove outer gauze and Tegaderm dressing in 48 to 72 hours postoperatively. Use ice to
reduce any bruising or swelling.
Activity Restrictions/Additional Instructions:
Call for fevers (>100.5), nausea or vomiting, worsening abdominal pain
Referrals:
Zaid Kumar MD [Active, Surgical] - in two to four weeks
Brijesh Torrez MD [Community, [employer]]
Referral Note: Please call for an appointment to evaluate for MRI contrast allergy
UNKNOWN - PT DOES,NOT KNOW [Family Provider]
Prescriptions:
New
acetaminophen [acetaminophen] 325 mg tablet
650 mg PO Q4HPRN PRN (Reason: mild pain) Qty: 1 0RF
tramadol 50 mg tablet
50 mg PO Q6HPRN PRN (Reason: severe pain/breakthrough pain) Qty: 7 0RF
ibuprofen 200 mg tablet
400 - 600 mg PO Q6HPRN PRN (Reason: moderate pain) Qty: 1 0RF
epinephrine [EpiPen 2-Sandro] 0.3 mg/0.3 mL auto-injector
0.3 mg IM Q5-15M PRN (Reason: hypersensitivity reaction) Qty: 2 0RF
Discharge Orders:
Discharge Patient (As Directed); Ordered 07/29/25
Ordered By: Obed Torrez
Discharge Date and Time
Discharge Date/Time: 07/29/25 11:37
Print Language: SWISS
== END 2025-07-29 11:37 | disposition home or self-care (01) | DRG 418 ==
LOC: 2 SOUTH 16:52
PROVIDERS: Nurse Practitioner Family; Physician Assistant; Student in an Organized Health Care Education/Training Program; Surgery; ADMITTING PHYSICIAN Internal Medicine; ATTENDING PHYSICIAN Hospitalist; EMERGENCY PHYSICIAN Emergency Medicine; OTHER PHYSICIAN Internal Medicine Critical Care Medicine; OTHER PHYSICIAN Surgery
PROC: 0FT44ZZ Resection of Gallbladder, Percutaneous Endoscopic Approach (ICD-10-PCS; 2025-07-28)
PROC: BF131ZZ Fluoroscopy of Gallbladder and Bile Ducts using Low Osmolar Contrast (ICD-10-PCS; 2025-07-28)
PROC: 0WQF0ZZ Repair Abdominal Wall, Open Approach (ICD-10-PCS; 2025-07-28)
DX: K80.12 Calculus of gallbladder with acute and chronic cholecystitis without obstruction (principal); E87.1 Hypo-osmolality and hyponatremia; T88.6XXA Anaphylactic reaction due to adverse effect of correct drug or medicament properly administered, initial encounter; R31.9 Hematuria, unspecified; K44.9 Diaphragmatic hernia without obstruction or gangrene; K42.9 Umbilical hernia without obstruction or gangrene; K82.8 Other specified diseases of gallbladder; E87.8 Other disorders of electrolyte and fluid balance, not elsewhere classified; N28.89 Other specified disorders of kidney and ureter; T50.8X5A Adverse effect of diagnostic agents, initial encounter; I95.2 Hypotension due to drugs; Y84.8 Other medical procedures as the cause of abnormal reaction of the patient, or of later complication, without mention of misadventure at the time of the procedure; Y92.239 Unspecified place in hospital as the place of occurrence of the external cause; Z60.2 Problems related to living alone; Z91.013 Allergy to seafood; Z88.5 Allergy status to narcotic agent; Z11.52 Encounter for screening for COVID-19; Z91.041 Radiographic dye allergy status
CPT/HCPCS: 71045; 74177; 74183; 74300; 76000; 80048; 80053; 81003; 81015; 82962; 83605; 83690; 83735; 84100; 85025; 85027; 85610; 85730; 87811; 88304; 93005; 96361; 96365; 96375; 99285; 99406; A4300; A9575; Q9967